=== PATIENT | male | born 1950 | race Caucasian/White ===

== ENCOUNTER → 2017-10-27 | Outpatient (CLI) | payer MEDICARE ==
[~2017-10-27] MED LIST: IOPAMIDOL-370 100 ML VIAL IV ONE
== END | disposition home or self-care (01) ==
LOC: OIH 08:42
PROVIDERS: ATTEND Internal Medicine Cardiovascular Disease
DX: I71.4 Abdominal aortic aneurysm, without rupture (principal)
CPT/HCPCS: 71275; 74174; Q9967

== ENCOUNTER 2018-08-17 05:30 | Day surgery (SDC) | payer MEDICARE ==
[~2018-08-17] VITALS: Ht 193 cm; Wt 119.3 kg
[2018-08-17] VITALS (7 sets, daily range): BP systolic 96–132; BP diastolic 47–87
[~2018-08-17 05:30] MED LIST changes: +AEC81 PO; +AMLO10TA7 PO; +ASCO10007 PO; +ATOR20TA65 PO; +BENA20TA10 PO; +BIOT5000 PO; +GLUC100019 PO; -IOPAMIDOL-370 100 ML VIAL IV ONE; +LEVO88TA7 PO; +LUTE20TA PO; +MULT-1333 PO; +OMEG-96 PO; +SPIR25TA PO; +TADA5TAB PO; +UBID100C10 PO; +VALA500T38 PO; +VITA100051 PO; +VITA1TAB39 PO
[2018-08-17] MEDS ORDERED: SODIUM CHLORIDE 0.9% 1000ML 1,000 ML IV ONE (05:48)
[2018-08-17] MEDS ORDERED: SIMETHICONE 40 MG/0.6 ML ML ONE (06:36)
[2018-08-17] MEDS ORDERED: PROPOFOL 10 MG/ML 20ML VIAL IV ONE (06:40)
== END 2018-08-17 07:35 | disposition home or self-care (01) ==
LOC: ENDO 05:30 → DAH 05:30 → ENDO 07:35
PROVIDERS: ATTEND Internal Medicine
DX: Z12.11 Encounter for screening for malignant neoplasm of colon (principal); K63.5 Polyp of colon; D12.2 Benign neoplasm of ascending colon; D12.3 Benign neoplasm of transverse colon; Z86.010 Personal history of colon polyps; E66.9 Obesity, unspecified; I10 Essential (primary) hypertension; Z85.828 Personal history of other malignant neoplasm of skin; Z79.899 Other long term (current) drug therapy; E78.5 Hyperlipidemia, unspecified; Z98.890 Other specified postprocedural states; Z68.33 Body mass index [BMI] 33.0-33.9, adult; E03.9 Hypothyroidism, unspecified; K57.30 Diverticulosis of large intestine without perforation or abscess without bleeding
CPT/HCPCS: 45380; 45385; A4606; J2704; J7030

== ENCOUNTER → 2019-11-09 | Outpatient (CLI) | payer MEDICARE ==
[~2019-11-09] MED LIST changes: +AMLO-258 PO; -AMLO10TA7 PO; +ASCO100031 PO; -ASCO10007 PO; +GADODIAMIDE 10 MMOL/20 ML VIAL IV ONE; -VALA500T38 PO; +VALA500T42 PO
== END | disposition home or self-care (01) ==
LOC: RAH 07:43
PROVIDERS: ATTEND Internal Medicine Cardiovascular Disease
DX: N28.1 Cyst of kidney, acquired (principal); I72.2 Aneurysm of renal artery
CPT/HCPCS: A9579; C8902

== ENCOUNTER → 2019-11-28 | Outpatient (CLI) | payer MEDICARE ==
[~2019-11-28] MED LIST changes: -AEC81 PO; -AMLO-258 PO; -ASCO100031 PO; -ATOR20TA65 PO; -BENA20TA10 PO; -BIOT5000 PO; -GADODIAMIDE 10 MMOL/20 ML VIAL IV ONE; -GLUC100019 PO; +IOHEXOL 350 MG/ML 100ML INFUS..BTL IV ONE; -LEVO88TA7 PO; -LUTE20TA PO; -MULT-1333 PO; -OMEG-96 PO; -SPIR25TA PO; -TADA5TAB PO; -UBID100C10 PO; -VALA500T42 PO; -VITA100051 PO; -VITA1TAB39 PO
== END | disposition home or self-care (01) ==
LOC: RAH 08:26
PROVIDERS: ATTEND Internal Medicine Cardiovascular Disease
DX: I71.2 Thoracic aortic aneurysm, without rupture (principal); I10 Essential (primary) hypertension; N28.1 Cyst of kidney, acquired; K57.90 Diverticulosis of intestine, part unspecified, without perforation or abscess without bleeding; I77.4 Celiac artery compression syndrome; J98.11 Atelectasis; Z90.49 Acquired absence of other specified parts of digestive tract
CPT/HCPCS: 71275; 74174; Q9967

== ENCOUNTER → 2023-11-04 | Outpatient (CLI) | payer MEDICARE ==
[~2023-11-04] MED LIST changes: +AEC81 PO; +AMLO-258 PO; +ASCO100031 PO; +ATOR20TA65 PO; +BENA-8 PO; +BIOT5000 PO; +GLUC100019 PO; -IOHEXOL 350 MG/ML 100ML INFUS..BTL IV ONE; +LEVO88TA7 PO; +LUTE20TA PO; +MULT-1333 PO; +OMEG-96 PO; +SPIR25TA PO; +TADA5TAB PO; +UBID100C10 PO; +VALA500T42 PO; +VITA100051 PO; +VITA1TAB39 PO
== END | disposition home or self-care (01) ==
LOC: RAH 08:59
PROVIDERS: ATTEND Internal Medicine Critical Care Medicine
DX: E80.6 Other disorders of bilirubin metabolism (principal); Z90.49 Acquired absence of other specified parts of digestive tract
CPT/HCPCS: 76705

== ENCOUNTER → 2024-11-23 | Outpatient (CLI) | payer OTHER ==
--- NOTE | 2024-11-24 12:36 | HMCIMG ---
EXAM: CT Cardiac calcium scoring. CLINICAL HISTORY: Screening. TECHNIQUE: Thin collimated axial CT cardiac images were obtained. A CT scan is done according to ALARA (As Low As Reasonably Achievable). CONTRAST: None. COMPARISON: None provided. FINDINGS: Calcium Score: VESSEL Number of lesions Volume mm3 Equi. Mass/mg Calcium score LM 1 157.0 - 175.2 LAD 15 252.5 - 376.3 LCX 3 11.9 - 18.3 RCA 7 12.6 - 13.4 Total 26 434.1 - 583.2 IMPRESSION: The calcium score is 583.2. This corresponds to the 73rd percentile Aneurysm of the ascending aorta measuring 4.6 cm. /[place]
== END | disposition home or self-care (01) ==
LOC: RAH 11:05
PROVIDERS: ATTEND Internal Medicine Critical Care Medicine
DX: Z13.6 Encounter for screening for cardiovascular disorders (principal); I71.21 Aneurysm of the ascending aorta, without rupture
CPT/HCPCS: 75571

== ENCOUNTER → 2024-12-13 | Outpatient (CLI) | payer MEDICARE ==
[~2024-12-13] MED LIST changes: +IOHEXOL 350 MG/ML 100ML INFUS..BTL IV ONE
--- NOTE | 2024-12-14 12:00 | HMCIMG ---
EXAMINATION: CT ANGIOGRAM OF THE CHEST. CLINICAL HISTORY: Thoracic aortic aneurysm, without rupture COMPARISON: Prior CTA chest/abdomen and pelvis on 10/27/2017. TECHNIQUE: Axial CT images of the chest were obtained following the intravenous administration of nonionic contrast. Sagittal and coronal reformatted images were also significant for interpretation. FINDINGS: Central airways are patent. 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 There is thoracic osteophyte induced subpleural ground glassing with interseptal thickening in the apicoposterior segment of the right lower lobe. There is no suspicious pulmonary nodule or focal airspace disease. There is no pleural or pericardial effusion. Heart size is within normal limits. Stable aneurysm of the ascending aorta measuring 4.2 x 4.3 cm. No associated dissection. There are no filling defects within the main, right, and left pulmonary arteries as well as the visualized second- and third-order branches. The main pulmonary artery is normal in size. There is no lymphadenopathy within the chest. There is no focal thyroid abnormality. Limited views of the upper abdomen demonstrate no acute findings. There is no acute or suspicious osseous abnormality. There is multilevel moderate degenerative spondylosis of the spine. IMPRESSION: Stable aneurysm of the ascending aorta. No thoracic aortic dissection. No pulmonary embolus. 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 No pulmonary infiltrates or pleural effusions. Thoracic osteophyte induced subpleural ground glassing with interseptal thickening in the apicoposterior segment of the right lower lobe. EXAMINATION: CT ANGIOGRAM OF ABDOMEN AND PELVIS. CLINICAL HISTORY: Thoracic aortic aneurysm, without rupture COMPARISON: Prior CTA chest/abdomen and pelvis on 10/27/2017. TECHNIQUE: MDCT angiogram of the abdominal aortic vessels was performed after administration of intravenous contrast. FINDINGS: There are atheromatous wall calcification of the aorta and common iliac arteries. There is no aneurysm or dissection. There is no stenosis or occlusion. Splenic artery is seen arising from the aorta. The abdominal aortic branches, viz., the celiac and superior mesenteric arteries, are normal in caliber. There is no stenosis or occlusion. The angle between superior mesenteric artery and aorta is normal. Bilateral renal arteries are normal in caliber. There is no stenosis or occlusion. The inferior mesenteric arteries are normal in caliber. Bifurcation morphology is normal. There is no stenosis or occlusion. The bilateral common iliac arteries are normal in caliber. No stenosis or occlusion. The bilateral external iliac arteries are normal in caliber. Their branches are normal, and the bilateral internal iliac arteries are normal; there is no stenosis or occlusion. Within the abdomen and pelvis, stable non-enhancing hypodense cystic lesion in segment IV measuring 0.7 x 0.5 cm; splenic calcified granuloma; surgically absent gallbladder; pancreas, adrenal glands, and kidneys are within normal limits; there are colonic diverticula; rest of the bowel loops are normal in caliber without evidence of obstruction, ileus, or bowel wall thickening, and the appendix is normal; and urinary bladder, prostate, and seminal vesicles appear normal in caliber. There is multilevel moderate degenerative spondylosis of the spine. Anterior listhesis of L5 in relation to S1. Posterior interpedicular screw fixation status between L4 and S1 level. IMPRESSION: No abdominal aortic aneurysm or dissection. Atherosclerosis. No acute abdominal or pelvic pathology. /[place]
== END | disposition home or self-care (01) ==
LOC: RAH 07:37
PROVIDERS: ATTEND Internal Medicine Cardiovascular Disease
DX: I71.21 Aneurysm of the ascending aorta, without rupture (principal); D73.89 Other diseases of spleen; M25.78 Osteophyte, vertebrae; K57.30 Diverticulosis of large intestine without perforation or abscess without bleeding; M47.815 Spondylosis without myelopathy or radiculopathy, thoracolumbar region; M43.17 Spondylolisthesis, lumbosacral region; I70.8 Atherosclerosis of other arteries; Z90.49 Acquired absence of other specified parts of digestive tract
CPT/HCPCS: 74174; 71275; Q9967